=== PATIENT | male | born 1970 | race Two or more races ===

== ENCOUNTER 2019-11-23 09:56 | Emergency (ER) | payer MEDICAID ==
[~2019-11-23] VITALS: Ht 180.3 cm; Wt 65.8 kg
[2019-11-23 10:26] VITALS: BP 115/84
--- NOTE | 2019-11-23 13:33 | NUR ---
Took over pt care. Discharging off chart.
== END 2019-11-23 13:34 | disposition home or self-care (01) ==
LOC: ER 10:03
DX: J40 Bronchitis, not specified as acute or chronic (principal); F17.200 Nicotine dependence, unspecified, uncomplicated
CPT/HCPCS: 71045-TC